=== PATIENT | male | born 1965 | race Caucasian/White ===

== ENCOUNTER 2020-07-20 16:17 | Emergency (ER) | payer MEDICAID ==
[~2020-07-20] VITALS: Ht 162.6 cm; Wt 56.8 kg
[2020-07-20] MEDS ORDERED: ketorolac tromethamine 15mg/ml inj. IM ONE (16:40)
[2020-07-20] MEDS ORDERED: IBUP-1984 PO (17:52)
[2020-07-20 18:11] VITALS: BP 128/82
--- NOTE | 2020-07-20 18:13 | NUR ---
PT WAS ADVISED TO TAKE HIS RING OFF OF HIS FINGER AND DOES NOT WANT TO. HE WAS EDUCATED ON FINGER AND ARM SWELLING THAT COULD PREVENT HIM FROM GETTING IT OFF OR CAUSING ADDED TRAUMA. PROVIDER MADE AWARE
== END 2020-07-20 18:16 | disposition home or self-care (01) ==
LOC: ER 16:19
DX: M25.511 Pain in right shoulder (principal); F17.200 Nicotine dependence, unspecified, uncomplicated; Z79.899 Other long term (current) drug therapy
CPT/HCPCS: 73030; 96372; 99284; J1885

== ENCOUNTER → 2023-09-26 | Outpatient (CLI) | payer MEDICAID | END | disposition home or self-care (01) | LOC: MRI 10:30 | PROVIDERS: ATTEND Nurse Practitioner Family | DX: S46.811A Strain of other muscles, fascia and tendons at shoulder and upper arm level, right arm, initial encounter (principal); M25.511 Pain in right shoulder; M75.21 Bicipital tendinitis, right shoulder; M75.121 Complete rotator cuff tear or rupture of right shoulder, not specified as traumatic; M89.8X1 Other specified disorders of bone, shoulder; X58.XXXA Exposure to other specified factors, initial encounter; Y93.89 Activity, other specified; Y92.89 Other specified places as the place of occurrence of the external cause; Y99.8 Other external cause status | CPT/HCPCS: 73221 ==

== ENCOUNTER 2024-08-12 11:37 | Outpatient (CLI) | payer MEDICAID ==
--- NOTE | 2024-08-12 15:44 | RADIOLOGY REPORT ---
CLINICAL INFORMATION: 59 years old, Male; SUPERIOR GLENOID LABRUM LESION OF RIGHT SHOULDER, INIT. TECHNIQUE: Multisequence multiplanar MRI images of the right shoulder were obtained without contras t. COMPARISON: MR MRI UPPER EXTREMITY RIGHT on DOS: 09/26/23 FINDINGS: Acromioclavicular joint: There is [id number] acromioclavicular hypertrophy and moderate edema . There is type 1 acromion. Small to moderate amount of fluid in the subacromial / subdeltoid bursa. Rotator cuff tendons: There are postsurgical changes from rotator cuff repair with multiple suture an chors the greater tuberosity. There is a T2 hypointense structure along the superior aspect of the hu meral head and extending toward the greater tuberosity, most consistent in appearance with a graft/stover perior capsular reconstruction measuring up to 3 cm in AP dimension and up to 3.6 cm in proximal to d istal dimension, extending to the most cephalad anchors at the greater tuberosity. Questionable thin strands seen extending toward the more caudal suture anchors. The graft does not extend along the ant erior aspect of the humeral head or greater tuberosity. T2 hyperintensity just proximal to the attach ment site of the greater tuberosity, may be due to suture holes rather than partial tear (series 7, i mage 10) There is heterogeneous T2 hyperintense signal of the proximal attachment site of the graft, without full-thickness fluid defect. Biceps tendon: There appears to be a biceps tenodesis. Long head biceps tendon is intact distal to th e tenodesis site. Labrum: Fraying of the superior labrum without fluid-filled tear. Bones: No fracture or focal marrow contusion. Muscles: Likely moderate fatty atrophy of the supraspinatus and infraspinatus muscles. Other: Motion artifact limits evaluation. Small glenohumeral joint effusion IMPRESSION: 1. Postsurgical changes as described above, with graft visualized, appears to be associated with a stover perior capsular reconstruction. 2. There is heterogeneous T2 hyperintense signal of the proximal attachment of the graft, without ful l-thickness fluid-filled defect in this location to suggest tear. 3. The distal aspect of the graft is at least partially intact at the level of the superior anchors o f the greater tuberosity. There is a small focal area of T2 hyperintense signal in the distal aspect of the graft just proximal to the suture anchors, which may be due to suture holes rather than parti al tear, although correlation with surgical history and clinical findings is needed. There are questi onable thin, indistinct strands extending to the more caudal suture anchors. 4. The anterior extent of the graft does not cover the anterior aspect of the humeral head or greater tuberosity, of uncertain clinical significance, with fluid from the glenohumeral joint coursing thro ugh the defect along the anterior extent of the graft into the subacromial / subdeltoid bursa. 5. [id number] acromioclavicular hypertrophy. 6. Additional findings as detailed above.
== END 2024-08-12 23:59 | disposition home or self-care (01) ==
LOC: MRI02 11:37
PROVIDERS: ATTEND Orthopaedic Surgery
DX: S43.431A Superior glenoid labrum lesion of right shoulder, initial encounter (principal); S46.011A Strain of muscle(s) and tendon(s) of the rotator cuff of right shoulder, initial encounter; M75.21 Bicipital tendinitis, right shoulder; M19.011 Primary osteoarthritis, right shoulder; Z98.890 Other specified postprocedural states; M89.311 Hypertrophy of bone, right shoulder; M75.51 Bursitis of right shoulder; X58.XXXA Exposure to other specified factors, initial encounter; Y93.9 Activity, unspecified; Y92.89 Other specified places as the place of occurrence of the external cause; Y99.8 Other external cause status
CPT/HCPCS: 73221